=== PATIENT | female | born 1945 ===

== ENCOUNTER 2018-02-22 14:56 | Emergency (ER) | payer MEDICARE, OTHER ==
[2018-02-22 15:09] VITALS: BMI 29.9
--- NOTE | 2018-02-22 16:01 | ED PDOC ---
HPI: Female Pain Time Seen by Provider: 02/22/18 15:27 Chief Complaint (Nursing): GI Problem Chief Complaint (Provider): hemorrhoid pain History Per: Patient History/Exam Limitations: no limitations Onset/Duration Of Symptoms: Days (x4 months) Current Symptoms Are (Timing): Still Present Additional Complaint(s): 72 year old female presents to the emergency department complaining of external hemorrhoid pain which she has had for four months. Patient states that sometimes there is a little bit of blood from it, but today she is just worried about the pain and inflammation, denying current rectal bleeding, abdominal pain , vomiting, diarrhea, and melena. She reports having constipation and pain with bowel movements because she has to push. Patient notes seeing her roll or tape edge machine operator two times and was prescribed creams and a stool softener which provides mild relief. PMD: Yesi Bardales Past Medical History Reviewed: Historical Data, Nursing Documentation, Vital Signs Vital Signs: Last Vital Signs Temp 98.6 F 02/22/18 15:09 Pulse Resp BP 150/80 02/22/18 15:09 Pulse Ox - Medical History PMH: Asthma, Diabetes, HTN, Hypercholesterolemia Denies: Chronic Kidney Disease - Surgical History Other surgeries: GASTRIC ULCER SX - Family History Family History: States: Unknown Family Hx - Social History Current smoker - smoking cessation education provided: No Alcohol: None Drugs: Denies - Immunization History Hx Tetanus Toxoid Vaccination: Yes Hx Influenza Vaccination: Yes Hx Pneumococcal Vaccination: Yes - Home Medications Home Medications: Ambulatory Orders Medication Instructions Recorded Atorvastatin [Lipitor] 1 tab PO DAILY 02/18/14 Levemir Flexpen 02/18/14 Levocetirizine Dihydrochloride 1 tab PO DAILY 02/18/14 Lisinopril 1 tab PO DAILY 02/18/14 Insulin Human (NPH)/Regular 100 100 SUBCUT 01/22/15 [Novolin 70/30 (70/30 units/ml) 10 ml] Pantoprazole [Protonix EC Tab] 20 cap PO BID 01/22/15 Docusate Sodium [Colace] 100 mg PO BID #60 capsule 02/22/18 Phenylephrine HCl/Witch Angela 1 gel TP BID #1 gel 02/22/18 [Hemorrhoidal Cooling Gel 0.25%-50%] traMADol [Ultram] 50 mg PO BID PRN #10 tab 02/22/18 - Allergies Allergies/Adverse Reactions: Allergies Allergy/AdvReac Type Severity Reaction Status Date / Time iodine Allergy RASH Verified 02/22/18 15:09 Review of Systems ROS Statement: Except As Marked, All Systems Reviewed And Found Negative Gastrointestinal: Positive for: Constipation, Rectal Pain (hemorrhoid, inflammation, no bleeding). Negative for: Vomiting, Abdominal Pain, Diarrhea, Melena Physical Exam - Reviewed Nursing Documentation Reviewed: Yes Vital Signs Reviewed: Yes - Physical Exam Appears: Positive for: No Acute Distress Head Exam: Positive for: ATRAUMATIC, NORMOCEPHALIC Skin: Positive for: Normal Color, Warm, Dry Eye Exam: Positive for: Normal appearance ENT: Positive for: Normal ENT Inspection Neck: Positive for: Normal, Painless ROM, Supple Cardiovascular/Chest: Positive for: Regular Rate, Rhythm. Negative for: Murmur Respiratory: Positive for: Normal Breath Sounds. Negative for: Accessory Muscle Use, Wheezing, Respiratory Distress Gastrointestinal/Abdominal: Positive for: Normal Exam, Soft. Negative for: Tenderness Back: Positive for: Normal Inspection. Negative for: L CVA Tenderness, R CVA Tenderness Rectal: Positive for: Hemorrhoids (one 2cm posterior external hemorrhoid at 6: 00 appearing non bloody, pink, warm and tender to palpation with good blood flow ) Extremity: Positive for: Normal ROM Neurologic/Psych: Positive for: Alert, Oriented (x3). Negative for: Motor/ Sensory Deficits Comments: Golf Course Designer for rectal exam: Nurse Hernandes - ECG O2 Sat by Pulse Oximetry: 100 (RA) Pulse Ox Interpretation: Normal Medical Decision Making Medical Decision Making: Initial Impression: external hemorrhoid pain, rectal pain Time: 15:50 Initial plan: --Patient will continue using her creams and stool softener, and is advised to take baths. Also advised to stay on a high fiber diet and use proper bowel movement hygiene. She is to follow up with her roll or tape edge machine operator and the surgical instrument mechanic for possible hemorrhoid removal. Scribe Attestation: Documented by Natalie Francisco, acting as a scribe for Carrie June MD. Provider Scribe Attestation: All medical entries made by the Scribe were at my direction and personally dictated by me. I have reviewed the chart and agree that the record accurately reflects my personal performance of the history, physical exam, medical decision making, and the department course for this patient. I have also personally directed, reviewed, and agree with the discharge instructions and disposition. Disposition - Clinical Impression Clinical Impression: Hemorrhoids, Rectal pain - Patient ED Disposition Is Patient to be Admitted: No Doctor Will See Patient In The: Office Counseled Patient/Family Regarding: Studies Performed, Diagnosis, Need For Followup - Disposition Referrals: Geovanna Ibrahim MD [Staff Provider] - Disposition: Routine/Home Disposition Time: 16:00 Condition: GOOD Additional Instructions: Take your medications as instructed. Follow up with your PCP in 2-3 days. Prescriptions: Docusate Sodium [Colace] 100 mg PO BID #60 capsule Phenylephrine HCl/Witch Angela [Hemorrhoidal Cooling Gel 0.25%-50%] 1 gel TP BID #1 gel traMADol [Ultram] 50 mg PO BID PRN #10 tab PRN Reason: Pain, Severe (8-10) Instructions: High Fiber Diet, Hemorrhoids (DC) Print Language: MACEDONIAN
[2018-02-22 16:08] VITALS: BP 131/72; PULSE 65; RESP 18; TEMP 98; O2SAT 100
== END 2018-02-22 16:25 | disposition home or self-care (01) ==
LOC: H.ER 14:56
DX: K64.9 Unspecified hemorrhoids (principal); K62.89 Other specified diseases of anus and rectum; E11.9 Type 2 diabetes mellitus without complications; I10 Essential (primary) hypertension; J45.909 Unspecified asthma, uncomplicated; Z79.4 Long term (current) use of insulin; Z87.19 Personal history of other diseases of the digestive system